=== PATIENT | female | born 1940 | race Caucasian/White ===

== ENCOUNTER → 2016-12-08 | Outpatient (REF) ==
[~2016-12-08] MED LIST: ALDACTONE 25MG25 M1 PO; ASPIRIN E.C. 8181 MG PO; AZULFIDINE500 MG/TAB PO; BLOOD PRESSURE MED PO; CALCIUM PO; CALCIUM1 CAP PO; CARDI-OMEGA1000 MG PO; COREG 25MG25 MG/TAB PO; COZAAR100 MG PO; DESYREL 50MG50 MG PO; DUO-KAPS1 CAP PO; FOSAMAX 70MG TA70 MG PO; IRON325 MG PO; LANOXIN 0.25M0.25 MG PO; MELOXICAM PO; MICARDIS80 MG PO; MIRAPEX 1MG PO; MULTI VITAMINS1 TAB PO; NORCO 325 MG-51 TAB PO; OXYGEN; TYLENOL PM EXTR1 TA1 PO; VIT D PO; VITAMIN D1000 IU PO; VITAPULSE PO; ZINC PO; [UNRECOGNIZED DRUG - OTHER] PO; b-12 PO; cholestoff PO; duloxetine PO; furosemide PO; melatonin PO; stool softener PO
[2016-12-08 18:59] LABS: THYROID STIMULATING HORMONE 1.89 uIU/mL (0.465-4.680)
== END ==
LOC: ZLAB.WCH 17:58
PROVIDERS: Internal Medicine
DX: Z01.89 Encounter for other specified special examinations (principal)

== ENCOUNTER → 2016-12-09 | Outpatient (REF) | LOC: ZLAB.WCH 12:17 | DX: Z01.89 Encounter for other specified special examinations (principal) ==

== ENCOUNTER → 2017-02-15 | Outpatient (CLI) | payer MEDICARE, OTHER | LOC: SUN.DIA 10:13 | DX: E11.9 Type 2 diabetes mellitus without complications (principal); E78.5 Hyperlipidemia, unspecified; I10 Essential (primary) hypertension; Z68.29 Body mass index [BMI] 29.0-29.9, adult; Z71.3 Dietary counseling and surveillance; Z87.891 Personal history of nicotine dependence | CPT/HCPCS: G0108 ==

== ENCOUNTER → 2017-03-13 | Outpatient (CLI) | payer MEDICARE, OTHER | LOC: SUN.DIA 09:55 | DX: E11.9 Type 2 diabetes mellitus without complications (principal); E78.5 Hyperlipidemia, unspecified; I10 Essential (primary) hypertension; Z68.29 Body mass index [BMI] 29.0-29.9, adult; Z71.3 Dietary counseling and surveillance; Z87.891 Personal history of nicotine dependence ==

== ENCOUNTER → 2017-05-08 | Outpatient (CLI) | payer MEDICARE, OTHER | LOC: SUN.DIA 10:31 | DX: E11.9 Type 2 diabetes mellitus without complications (principal); E78.5 Hyperlipidemia, unspecified; I10 Essential (primary) hypertension; Z68.29 Body mass index [BMI] 29.0-29.9, adult; Z71.3 Dietary counseling and surveillance; Z87.891 Personal history of nicotine dependence ==

== ENCOUNTER → 2017-07-18 | Outpatient (REF) | LOC: ZLAB.WCH 18:17 | DX: Z01.89 Encounter for other specified special examinations (principal) ==

== ENCOUNTER → 2017-10-09 | Outpatient (CLI) | payer MEDICARE, OTHER | LOC: SUN.DIA 02-15 10:13 | DX: E11.9 Type 2 diabetes mellitus without complications (principal); E78.5 Hyperlipidemia, unspecified; I10 Essential (primary) hypertension; Z87.891 Personal history of nicotine dependence ==

== ENCOUNTER → 2018-02-20 | Outpatient (REF) ==
[2018-02-20 16:43] LABS: THYROID STIMULATING HORMONE 3.32 uIU/mL (0.465-4.680)
== END ==
LOC: ZLAB.WCH 15:53
PROVIDERS: Internal Medicine
DX: Z01.89 Encounter for other specified special examinations (principal)

== ENCOUNTER → 2018-04-11 | Outpatient (CLI) | payer MEDICARE, OTHER | LOC: SUN.DIA 04-09 08:37 | DX: E11.40 Type 2 diabetes mellitus with diabetic neuropathy, unspecified (principal); E78.5 Hyperlipidemia, unspecified; I10 Essential (primary) hypertension ==

== ENCOUNTER → 2019-03-20 | Outpatient (CLI) | payer MEDICARE, OTHER | LOC: SUN.DIA 10-08 14:48 → DIA.ED 11:20 | DX: E11.9 Type 2 diabetes mellitus without complications (principal); E78.5 Hyperlipidemia, unspecified; I10 Essential (primary) hypertension; E11.40 Type 2 diabetes mellitus with diabetic neuropathy, unspecified | CPT/HCPCS: G0270 ==

== ENCOUNTER 2019-04-23 17:41 | Inpatient (IN) | payer MEDICARE, OTHER ==
[~2019-04-23] VITALS: Ht 170.2 cm; Wt 84.0 kg
[2019-04-23 19:23] VITALS: BP 170/90; PULSE 82; TEMP 100.8
[2019-04-23 19:25] VITALS: BP 170/90; PULSE 91; TEMP 100.8
[2019-04-23 19:25] LABS: BASO % 0.4 % (0.0-2.0); EOS # 0.1 (0.0-0.7); EOS % 1.3 % (0-4.0); GRAN # 7.7 (1.4-6.5); GRAN % 81.5 % (42.2-75.2); HEMATOCRIT 35.8 % (37.0-47.0); HEMOGLOBIN 11.3 g/dl (12.5-16.0); LYMPH # 0.6 (1.2-3.4); LYMPH % 6.6 % (20.0-51.0); MEAN CELL VOLUME 96 fl (80.0-100.0); MEAN CORPUSCULAR HEMOGLOBIN 30 pg (27.0-31.0); MEAN CORPUSCULAR HGB CONC 32 g/dl (33.0-37.0); MEAN PLATELET VOLUME 9.2 fl (7.4-10.4); MONO # 0.9 (0.1-0.6); MONO % 9.1 % (1.7-9.3); PLATELET COUNT 192 K/mm3 (130-400); RED BLOOD COUNT 3.75 M/mm3 (4.10-5.30); REDCELL DISTRIBUTION WIDTH-CV 16.1 % (11.5-14.5)
[2019-04-23 19:44] LABS: BILIRUBIN,TOTAL 1.3 mg/dL (0.0-1.0); CALCIUM 9.8 mg/dL (8.4-10.2); CREATININE, serum 0.65 (0.52-1.25); MAGNESIUM 1.7 mg/dL (1.6-2.3); POTASSIUM 3.3 mmol/L (3.4-5.0)
[2019-04-23] MEDS ORDERED: LANOXIN 0.120.125 MG PO (19:54)
[2019-04-23] MEDS ORDERED: DEMADEX 20MG20 M1 PO (19:56)
[2019-04-23] MEDS ORDERED: COUMADIN 1MG1 MG/TAB PO (19:57)
[2019-04-23] MEDS ORDERED: MIRAPEX 1MG PO (19:59)
[2019-04-23] MEDS ORDERED: NEURONTIN300 MG/CAP PO (20:00)
[2019-04-23] MEDS ORDERED: ASPIRIN E.C. 8181 MG PO (20:02)
[2019-04-23] MEDS ORDERED: SINEMET 25/101 UDTAB PO (20:02)
[2019-04-23] MEDS ORDERED: CENTRUM SILVER1 TAB PO (20:04)
[2019-04-23] MEDS ORDERED: TYLENOL PM EXTR1 TA1 PO (20:04)
[2019-04-23] MEDS ORDERED: FERROUS GL325 MG/TAB PO (20:05)
[2019-04-23] MEDS ORDERED: COREG 25MG25 MG/TAB PO (20:06)
[2019-04-23] MEDS ORDERED: COZAAR 25MG25 MG/TAB PO (20:06)
[2019-04-23] MEDS ORDERED: TUMS DUAL ACTIO1 CTB PO (20:08)
[2019-04-23] MEDS ORDERED: CYMBALTA 60MG60 MG PO (20:09)
--- NOTE | 2019-04-23 20:45 | NUR ---
Patient assessed at this time. Alert and oriented x 4, and able to make needs known. Denies having pain and discomfort at this time. Peripheral IV to right AC was out during assessment. New IV started to right forearm. Does report SOB and dyspnea with exertion. On oxygen at 4 L/min via NC. LS CTA in upper lobes, diminished in lower lobes. Telemetry in place-NS. Capillary refill less than 3 seconds. Non-tenting skin turgor. BSAx4. Reported 3 episodes of diarrhea this morning. Abdomen soft and non-tender. 2+ edema BLE. BLANCA hose in place. Son remains at bedside. Patient and son voice no questions, needs, or concerns at this time. Resting in bed with call light within reach.
[2019-04-23 21:56] LABS: ARTERIAL BLD GAS TCO2 CT 42.5; ARTERIAL BLOOD GAS BASE EXCESS 13.9 (-2-2); ARTERIAL BLOOD GAS HCO3 40.7 meq/L (22-26); ARTERIAL BLOOD GAS PCO2 61.1 mmHg (35-45); ARTERIAL BLOOD GAS pH 7.44 (7.35-7.45)
[2019-04-23 21:58] LABS: ARTERIAL BLOOD GAS PO2 40.1 mmHg (80-100)
[2019-04-24] VITALS (7 sets, daily range): BP systolic 11–139; BP diastolic 48–68; PULSE 68–94; TEMP 97.8–98.7
[2019-04-24 05:44] LABS: HYALINE CAST >12 /lpf; MUCOUS Present /lpf; PH 5 (5-8); SQUAMOUS EPITHELIAL None Seen /hpf; URINE APPEARANCE Hazy; URINE BACTERIA None Seen /hpf; URINE BILIRUBIN Negative (NEGATIVE); URINE BLOOD 3+ (NEGATIVE); URINE COLOR Amber; URINE GLUCOSE Negative (NEGATIVE); URINE KETONE Trace (NEGATIVE); URINE LEUKOCYTE ESTERASE Trace (NEGATIVE); URINE NITRATE Negative (NEGATIVE); URINE PROTEIN(semi-quant) Negative (NEGATIVE); URINE RBC >50 /hpf; URINE UROBILINOGEN Negative (NEGATIVE)
[2019-04-24 05:45] LABS: COLLECTION METHOD CATHETER
--- NOTE | 2019-04-24 06:02 | NUR ---
Magnesium replaced IV this shift per orders, as well as PO Potassium. Tolerated well. Patient has been resting in bed with eyes closed. Indwelling rodrigues catheter continues to drain july, clear urine via dependent drainage. Catheter had been placed to [facility] prior to transfer. Patient voices no questions, needs, or concerns at this time. Continues to wear oxygen at 4 L/min via NC. Resting in bed with eyes closed at this time. Call light is within reach. Son remains at bedside.
--- NOTE | 2019-04-24 07:29 | NUR ---
UA results back. New order for Rocephin. Given per orders. New order to D/C rodrigues. Foely catheter D/C'd at this time.
[2019-04-24 09:13] LABS: BASO # 0.1 (0.0-0.2); BASO % 0.8 % (0.0-2.0); EOS # 0.1 (0.0-0.7); EOS % 1.7 % (0-4.0); GRAN # 4.9 (1.4-6.5); GRAN % 76.6 % (42.2-75.2); HEMOGLOBIN 10.8 g/dl (12.5-16.0); LYMPH # 0.6 (1.2-3.4); LYMPH % 9.9 % (20.0-51.0); MEAN CELL VOLUME 97 fl (80.0-100.0); MEAN CORPUSCULAR HEMOGLOBIN 30 pg (27.0-31.0); MEAN CORPUSCULAR HGB CONC 31 g/dl (33.0-37.0); MEAN PLATELET VOLUME 9.2 fl (7.4-10.4); MONO # 0.7 (0.1-0.6); MONO % 10.1 % (1.7-9.3); PLATELET COUNT 185 K/mm3 (130-400); RED BLOOD COUNT 3.57 M/mm3 (4.10-5.30); REDCELL DISTRIBUTION WIDTH-CV 15.9 % (11.5-14.5)
[2019-04-24 09:16] LABS: HEMATOCRIT 34.5 % (37.0-47.0)
[2019-04-24 09:18] LABS: INR 1.6 (0.8-3.0); PROTHROMBIN TIME 19.5 SECONDS (9.7-12.8)
[2019-04-24 09:20] LABS: ALBUMIN 3.8 gm/dL (3.5-5.0); BILIRUBIN,TOTAL 0.8 mg/dL (0.0-1.0); CALCIUM 9.4 mg/dL (8.4-10.2); CREATININE, serum 0.83 (0.52-1.25); MAGNESIUM 2.4 mg/dL (1.6-2.3); TOTAL PROTEIN 6.7 gm/dL (6.4-8.2)
--- NOTE | 2019-04-24 11:53 | NUR ---
Patient has been sitting up on the side of the bed. Son was at bedside. Patient is alert and oriented, denies pain. Respirations are even and nonlabored. Verbalizes that she would like to go back home and is hopeful that she can discharge today. No other needs are verbalized. Call light and personal items are within reach.
--- NOTE | 2019-04-24 19:03 | NUR ---
Patient is sitting up on side of bed eating supper. She is pleased to have "real food." Son has left this evening. States she has a small amount of generalized pain which isn't new for her. Call light and personal items are within reach.
--- NOTE | 2019-04-24 20:00 | NUR ---
Patient assessed at this time. Alert and oriented x 4, and able to make needs known. Denies having pain and discomfort at this time. IV site to right forearm flushed. Site is without redness, warmth, swelling, and pain. Denies having SOB and dyspnea. On oxygen at 4 L/min via NC. LS CTA. Respirations even and unlabored. HRR. Telemetry in place-NS. Capillary refill less than 3 seconds. Non-tenting skin turgor. BSAx4. Abdomen soft and nontender. No edema. BLANCA hose to BLE. Voices no questions, needs, or concerns at this time. Resting in bed with call light within reach. Son at bedside.
[2019-04-25 03:41] VITALS: BP 127/52; PULSE 70; TEMP 97.8
[2019-04-25 06:01] VITALS: BP 106/56; PULSE 72
[2019-04-25 06:40] VITALS: BP 132/54; PULSE 66
--- NOTE | 2019-04-25 06:45 | NUR ---
Telemetry called at 0600. Reported 6 second run of Vtach. Patient was in the bathroom at that time. Telemetry stated that it was not noisy signal or artifact. BP 106/56, pulse 72. Stat order for EKG put in and called RT. Telemetry called and stated that patient had another 7 second run of vtach at 0605. Patient was sitting on side of bed at that time. Asymptomatic. EKG results electronic ventricular pacemaker (no change from previous EKG). Called and spoke to Dr. Faustin and updated. No new orders at this time. Stated he would see patient today. Telemetry called back at 0635 and reported 12 second run of PAT. Called to Dr. Faustin and updated again. No new orders. Patient continues to deny having chest pain and discomfort. Resting in bed with call light within reach.
[2019-04-25 06:49] LABS: BASO # 0.1 (0.0-0.2); BASO % 0.7 % (0.0-2.0); EOS # 0.2 (0.0-0.7); EOS % 2.3 % (0-4.0); GRAN # 5.3 (1.4-6.5); GRAN % 75.8 % (42.2-75.2); HEMOGLOBIN 10.7 g/dl (12.5-16.0); LYMPH # 0.8 (1.2-3.4); MEAN CELL VOLUME 96 fl (80.0-100.0); MEAN CORPUSCULAR HEMOGLOBIN 30 pg (27.0-31.0); MEAN CORPUSCULAR HGB CONC 31 g/dl (33.0-37.0); MEAN PLATELET VOLUME 9.3 fl (7.4-10.4); MONO # 0.6 (0.1-0.6); MONO % 8.3 % (1.7-9.3); PLATELET COUNT 194 K/mm3 (130-400); RED BLOOD COUNT 3.54 M/mm3 (4.10-5.30); REDCELL DISTRIBUTION WIDTH-CV 15.7 % (11.5-14.5)
[2019-04-25 06:52] LABS: HEMATOCRIT 34.1 % (37.0-47.0)
[2019-04-25 07:00] LABS: INR 2.1 (0.8-3.0); PROTHROMBIN TIME 24.7 SECONDS (9.7-12.8)
[2019-04-25 07:01] LABS: CALCIUM 9.4 mg/dL (8.4-10.2); CREATININE, serum 0.83 (0.52-1.25); POTASSIUM 4.2 mmol/L (3.4-5.0)
--- NOTE | 2019-04-25 09:24 | NUR ---
LALA met with the patient and the patient's son, Renzo Cesar (ph#[phone]), to discuss discharge plan. The patient lives in [place] with Renzo. She reports independence with ADLs and has a walker and continuous oxygen from [employer]. The patient's PCP is Dr. Matthew Myers and she receives her medications at [facility]. She reports no difficulties obtaining her meds. The patient does not have advanced directives in EMR, but she states that she does have them completed. She states [facility] or [facility] should have a copy. LALA attempted to contact both of those places and left a voicemail to request a copy. The patient states that her son, Renzo, is the DPOA-HC. The patient plans to return home with her son upon discharge. No additional needs at this time.
--- NOTE | 2019-04-25 16:50 | NUR ---
Patient discharged home at 1614. Discharge instructions reviewed with patient. She was not interested in discussing CHF instructions as she has had eductaion reviewed with her multiple times. She was assisted to the wheelchair and her nephew drove her and her son home in private vehicle. All belongings sent with patient.
== END 2019-04-25 16:14 | disposition home or self-care (01) | DRG 292 ==
LOC: MEDICAL 17:41
PROVIDERS: Nurse Practitioner Family; ADMIT Student in an Organized Health Care Education/Training Program
DX: I11.0 Hypertensive heart disease with heart failure (principal); J96.11 Chronic respiratory failure with hypoxia; E87.3 Alkalosis; E87.2 Acidosis; K52.9 Noninfective gastroenteritis and colitis, unspecified; I48.91 Unspecified atrial fibrillation; I50.9 Heart failure, unspecified; J44.9 Chronic obstructive pulmonary disease, unspecified; G62.9 Polyneuropathy, unspecified; E87.6 Hypokalemia; E83.42 Hypomagnesemia; E87.8 Other disorders of electrolyte and fluid balance, not elsewhere classified; R73.9 Hyperglycemia, unspecified; G20 Parkinson's disease; M81.0 Age-related osteoporosis without current pathological fracture; F32.9 Major depressive disorder, single episode, unspecified; G47.33 Obstructive sleep apnea (adult) (pediatric); D64.9 Anemia, unspecified; Z96.612 Presence of left artificial shoulder joint; Z96.611 Presence of right artificial shoulder joint; Z96.653 Presence of artificial knee joint, bilateral; Z90.710 Acquired absence of both cervix and uterus; Z79.01 Long term (current) use of anticoagulants; Z99.81 Dependence on supplemental oxygen; Z98.49 Cataract extraction status, unspecified eye; Z90.49 Acquired absence of other specified parts of digestive tract; Z79.82 Long term (current) use of aspirin; Z87.891 Personal history of nicotine dependence; Z88.0 Allergy status to penicillin; Z88.5 Allergy status to narcotic agent
CPT/HCPCS: 99222-AI; A4216; J0696; J1650; J1815; J3475